=== PATIENT | female | born 1985 | race Caucasian/White ===

== ENCOUNTER 2019-08-19 00:23 | Emergency (ER) | payer MEDICARE, MEDICAID ==
[~2019-08-19] VITALS: Ht 177.8 cm; Wt 67.0 kg
[~2019-08-19 00:23] MED LIST: ESTR2TAB PO; GABA-826 PO; LAMO100T PO; LAMO100T5 PO; LORA-445 PO; PROG100C16 PO; SPIR100T4 PO; SPIR50TA4 PO; TRAZ-137 PO; TRAZ50TA66 PO
[2019-08-19 00:30] VITALS: BP 125/81
[2019-08-19] MEDS ORDERED: KETOROLAC 30 MG/1 ML ONE (00:42)
--- NOTE | 2019-08-19 00:51 | NUR ---
pt medicated per mar for pain.
[2019-08-19] MEDS ORDERED: KETOROLAC 30 MG/1 ML IM ONE (01:00)
--- NOTE | 2019-08-19 01:11 | NUR ---
pt d/c with d/c summary and scripts. pt provided with taxi voucher for safe d/c home. pt ambulates to registration desk with steady gait for d/c home. pt denies any other needs pertaining to this visit.
== END 2019-08-19 01:14 | disposition home or self-care (01) ==
LOC: ED 01:00
DX: M25.531 Pain in right wrist (principal); M79.631 Pain in right forearm; F31.9 Bipolar disorder, unspecified; F17.200 Nicotine dependence, unspecified, uncomplicated; X58.XXXA Exposure to other specified factors, initial encounter; Y93.89 Activity, other specified; Y92.69 Other specified industrial and construction area as the place of occurrence of the external cause; Y99.0 Civilian activity done for income or pay
CPT/HCPCS: 96372; 99283; J1885

== ENCOUNTER 2019-09-10 18:46 | Emergency (ER) | payer MEDICARE, MEDICAID ==
[~2019-09-10] VITALS: Ht 177.8 cm; Wt 81.3 kg
--- NOTE | 2019-09-10 18:55 | NUR ---
NA X1
[2019-09-10 19:02] VITALS: BP 117/70
[2019-09-10 19:34] LABS: RAPID INFLUENZA A Negative (Negative); RAPID INFLUENZA B Negative (Negative)
== END 2019-09-10 20:36 | disposition home or self-care (01) ==
LOC: ED 20:32
DX: J06.9 Acute upper respiratory infection, unspecified (principal); F41.1 Generalized anxiety disorder; F43.10 Post-traumatic stress disorder, unspecified; F31.9 Bipolar disorder, unspecified; F17.200 Nicotine dependence, unspecified, uncomplicated
CPT/HCPCS: 71046; 87400; 99284

== ENCOUNTER 2019-10-05 21:17 | Emergency (ER) | payer MEDICARE, MEDICAID ==
[~2019-10-05] VITALS: Ht 177.8 cm; Wt 80.6 kg
[2019-10-05 21:19] VITALS: BP 114/74
[2019-10-05] MEDS ORDERED: IBUPROFEN 200 MG TABLET PO ONE (21:30)
[2019-10-05] MEDS ORDERED: IBUPROFEN 200 MG TABLET ONE (21:38)
--- NOTE | 2019-10-05 22:36 | NUR ---
Patient/Caregiver given discharge instructions and they have confirmed that they understand the instructions. Patient ambulatory with steady gait.
== END 2019-10-05 22:37 | disposition home or self-care (01) ==
LOC: ED 22:12
DX: S22.31XA Fracture of one rib, right side, initial encounter for closed fracture (principal); G40.909 Epilepsy, unspecified, not intractable, without status epilepticus; F17.210 Nicotine dependence, cigarettes, uncomplicated; W19.XXXA Unspecified fall, initial encounter; Y93.89 Activity, other specified; Y92.488 Other paved roadways as the place of occurrence of the external cause; Y99.8 Other external cause status
CPT/HCPCS: 99283

== ENCOUNTER 2019-11-13 21:06 | Emergency (ER) | payer MEDICARE, MEDICAID ==
[~2019-11-13] VITALS: Ht 177.8 cm; Wt 80.9 kg
[2019-11-13 21:35] VITALS: BP 104/72
[2019-11-13] MEDS ORDERED: ALBUTEROL/IPRATROPIUM 2.5MG/0.5MG, 3 ML NPPB ONE (22:00)
[2019-11-13] MEDS ORDERED: ACETAMINOPHEN 325 MG TABLET ONE (22:46)
[2019-11-13] MEDS ORDERED: PROMETHAZINE/COD. 10MG/6.25MG/5 ML ORAL SOL PO ONE (23:00)
[2019-11-13] MEDS ORDERED: ACETAMINOPHEN 325 MG TABLET PO ONE (23:00)
--- NOTE | 2019-11-13 23:15 | NUR ---
pt medicated per emar, pt verbalized dc intructions/meds/ pt getting ride home and to rx. no other needs.
== END 2019-11-13 23:16 | disposition home or self-care (01) ==
LOC: ED 23:00
DX: J20.8 Acute bronchitis due to other specified organisms (principal); B34.9 Viral infection, unspecified
CPT/HCPCS: 71045; 94640; 99284; J7512; J7620

== ENCOUNTER 2020-04-04 22:20 | Emergency (ER) | payer MEDICAID, MEDICARE ==
[~2020-04-04] VITALS: Ht 170.2 cm; Wt 81.0 kg
[~2020-04-04 22:20] MED LIST changes: -LAMO100T PO; +LAMO100T8 PO; -TRAZ-137 PO; +TRAZ-175 PO
--- NOTE | 2020-04-04 22:40 | NUR ---
GENEVA SWAB WALKED DOWN TO LAB, PROVIDER COLLECTED SPECIMEN
[2020-04-04 23:51] VITALS: BP 121/73
== END 2020-04-05 00:02 | disposition home or self-care (01) ==
LOC: ED 22:57
DX: Z03.818 Encounter for observation for suspected exposure to other biological agents ruled out (principal); R05 Cough
CPT/HCPCS: 71045; 99284; U0001

== ENCOUNTER 2020-04-06 11:40 | Emergency (ER) | payer MEDICARE ==
[~2020-04-06] VITALS: Ht 172.7 cm; Wt 80.0 kg
--- NOTE | 2020-04-06 11:42 | NUR ---
UPON ARRIVAL FROM [facility], THIS TECH ATTEMPTED TO PLACE PT IN A C-COLLAR. PT REFUSED C-COLLAR. PT STATED "MY NECK IS FINE, I DON'T NEED A NECK BRACE."
[2020-04-06] MEDS ORDERED: DIPH,PERTUSS(ACELL),TET VAC/PF 0.5 ML IM-VACC ONE ×2 (12:00→12:07)
[2020-04-06] MEDS ORDERED: KETOROLAC 30 MG/1 ML IM ONE (12:00)
[2020-04-06] MEDS ORDERED: L.E.T SOLUTION TP ONE ×2 (12:00→12:07)
[2020-04-06] MEDS ORDERED: NEOSPORIN OINT. PKT 1 PACKET ONE (12:00)
[2020-04-06] MEDS ORDERED: PLEASE ENTER HEIGHT AND WEIGHT MC SCH (12:00)
[2020-04-06] MEDS ORDERED: KETOROLAC 30 MG/1 ML ONE (12:07)
--- NOTE | 2020-04-06 12:49 | NUR ---
[employer] INTO SEE PT CONCERNING ACCIDENT. PT AT BEDSIDE.
--- NOTE | 2020-04-06 13:38 | NUR ---
TASK RN NOTE: PT REQUESTING BANDAIDS. TECH IN TO PLACE BANDAGES ON PT FACE. AWAITING XRAYS. AT BEDSIDE.
[2020-04-06 14:58] VITALS: BP 104/71
== END 2020-04-06 15:00 | disposition home or self-care (01) ==
LOC: ED 13:02
DX: S60.211A Contusion of right wrist, initial encounter (principal); S70.02XA Contusion of left hip, initial encounter; S00.81XA Abrasion of other part of head, initial encounter; S00.31XA Abrasion of nose, initial encounter; F17.210 Nicotine dependence, cigarettes, uncomplicated; V29.09XA Motorcycle driver injured in collision with other motor vehicles in nontraffic accident, initial encounter; Y93.89 Activity, other specified; Y92.410 Unspecified street and highway as the place of occurrence of the external cause; Y99.8 Other external cause status
CPT/HCPCS: 70486; 72125; 73130; 73502; 90471; 90715; 96372; 99285; J1885

== ENCOUNTER 2020-08-11 12:35 | Inpatient (IN) | payer MEDICARE ==
[~2020-08-11] VITALS: Ht 170.2 cm; Wt 80.6 kg
[2020-08-11] MEDS ORDERED: ONDANSETRON ODT 4 MG PO PRN (13:00)
[2020-08-11] MEDS ORDERED: ACETAMINOPHEN 325 MG TABLET PO PRN (13:00)
[2020-08-11] MEDS ORDERED: BISACODYL 10 MG SUPP PR PRN (13:00)
[2020-08-11] MEDS ORDERED: POLYETHYLENE GLYCOL 17 GM PACKET PO PRN (13:00)
[2020-08-11] MEDS ORDERED: NICOTINE 21 MG/24 HR PATCH.TD24 ONE (13:23)
[2020-08-11] MEDS: NICOTINE 21 MG/24 HR PATCH.TD24 TD SCH (13:28)
[2020-08-11 13:30] VITALS: BP 122/83
[2020-08-11 20:14] VITALS: BP 140/93
[2020-08-11] MEDS: HYDROXYZINE PAMOATE 50MG CAP PO PRN (22:00)
[2020-08-11 22:15] LABS: MICROSCOPIC NOT IND
[2020-08-12 06:09] LABS: CHOL/HDL RATIO 3.1; FREE T4 (FREE THYROXINE) 1.04 ng/dL (0.76-1.46); LDL/HDL RATIO 1.7 (0.5-3.0)
[2020-08-12 07:21] VITALS: BP 113/78
[2020-08-12] MEDS: NICOTINE 21 MG/24 HR PATCH.TD24 TD SCH (08:47)
[2020-08-12] MEDS: HYDROXYZINE PAMOATE 50MG CAP PO PRN ×2 (08:57→15:17)
[2020-08-12 19:15] VITALS: BP 107/72
[2020-08-13] MEDS: HYDROXYZINE PAMOATE 50MG CAP PO PRN ×3 (03:53→21:07)
[2020-08-13 07:00] VITALS: BP 117/79
[2020-08-13] MEDS: NICOTINE 21 MG/24 HR PATCH.TD24 TD SCH (08:53)
[2020-08-13 19:37] VITALS: BP 104/64
[2020-08-14 07:17] VITALS: BP 114/73
[2020-08-14] MEDS: NICOTINE 21 MG/24 HR PATCH.TD24 TD SCH (07:46)
[2020-08-14] MEDS: HYDROXYZINE PAMOATE 50MG CAP PO PRN ×2 (07:47→20:01)
[2020-08-14 19:01] VITALS: BP 111/75
[2020-08-15 07:09] VITALS: BP 109/79
[2020-08-15] MEDS: HYDROXYZINE PAMOATE 50MG CAP PO PRN ×2 (07:23→21:14)
[2020-08-15] MEDS: NICOTINE 21 MG/24 HR PATCH.TD24 TD SCH (07:25)
[2020-08-15 19:30] VITALS: BP 122/89
[2020-08-16 07:16] VITALS: BP 111/70
[2020-08-16] MEDS: HYDROXYZINE PAMOATE 50MG CAP PO PRN ×2 (08:10→20:01)
[2020-08-16] MEDS: NICOTINE 21 MG/24 HR PATCH.TD24 TD SCH (08:10)
[2020-08-16] MEDS ORDERED: NICO-487 TD (14:00)
[2020-08-16] MEDS ORDERED: HYDR50CA2 PO (14:00)
[2020-08-16 19:45] VITALS: BP 122/79
[2020-08-17] MEDS: HYDROXYZINE PAMOATE 50MG CAP PO PRN (06:58)
[2020-08-17 07:22] VITALS: BP 110/69
[2020-08-17] MEDS: NICOTINE 21 MG/24 HR PATCH.TD24 TD SCH (08:22)
== END 2020-08-17 13:00 | disposition home or self-care (01) | DRG 885 ==
LOC: 3E 13:06
PROVIDERS: ADMIT Psychiatry & Neurology Psychosomatic Medicine; ATTEND Psychiatry & Neurology Psychosomatic Medicine
DX: F31.30 Bipolar disorder, current episode depressed, mild or moderate severity, unspecified (principal); R45.851 Suicidal ideations; F41.9 Anxiety disorder, unspecified; F63.9 Impulse disorder, unspecified; F98.8 Other specified behavioral and emotional disorders with onset usually occurring in childhood and adolescence; F64.9 Gender identity disorder, unspecified; G40.909 Epilepsy, unspecified, not intractable, without status epilepticus; F17.200 Nicotine dependence, unspecified, uncomplicated; Z88.0 Allergy status to penicillin; Z88.8 Allergy status to other drugs, medicaments and biological substances
CPT/HCPCS: 36415; 80061; 81003; 82140; 84439; 84443; 87426; 93005

== ENCOUNTER 2020-10-23 09:01 | Emergency (ER) | payer MEDICARE ==
[~2020-10-23] VITALS: Ht 170.2 cm; Wt 82.2 kg
[~2020-10-23 09:01] MED LIST changes: +HYDR50CA2 PO; +NICO-587 TD
[2020-10-23] MEDS ORDERED: KETOROLAC 30 MG/1 ML ONE (09:29)
[2020-10-23] MEDS ORDERED: KETOROLAC 30 MG/1 ML IM ONE (09:30)
[2020-10-23 10:40] VITALS: BP 135/86
== END 2020-10-23 10:41 | disposition home or self-care (01) ==
LOC: ED 10:05
DX: M77.8 Other enthesopathies, not elsewhere classified (principal); M25.512 Pain in left shoulder; G40.909 Epilepsy, unspecified, not intractable, without status epilepticus
CPT/HCPCS: 73030; 96372; 99283; J1885

== ENCOUNTER 2020-10-30 18:54 | Emergency (ER) | payer MEDICARE ==
[~2020-10-30] VITALS: Ht 170.2 cm; Wt 82.0 kg
[2020-10-30 18:58] VITALS: BP 121/74
--- NOTE | 2020-10-30 19:13 | NUR ---
PT BROUGHT BACK TO ROOM VIA WC. PT ASSISTED WITH REMOVING JEANS AND BOOTS FOR EVALUATION FROM JOH[facility] SWENSON. [facility] WILL CONTINUE TO MONITOR.
== END 2020-10-30 20:14 | disposition home or self-care (01) ==
LOC: ED 19:55
DX: M25.562 Pain in left knee (principal)
CPT/HCPCS: 99283